=== PATIENT | male | born 1980 | race Caucasian/White ===

== ENCOUNTER 2021-10-07 08:03 | Emergency (ER) | payer BC, SELFPAY ==
[2021-10-07 08:25] VITALS: BP 160/101; PULSE 93; RESP 18; TEMP 36.8; O2SAT 95; BMI 37.5
--- NOTE | 2021-10-07 09:01 | ED_ITS ---
HPI - General Adult General: Chief complaint: General Medical Stated complaint: NOSE BLEED Time Seen by Provider: 10/07/21 09:05 History of Present Illness: HPI narrative: Patient had nosebleed that started today. It has improved significantly. States his nose been dry last couple days had Covid tested 2 days ago when he was negative for Covid. Denies fever chills has had slight body aches and head congestion. Has not tried any nasal clamping, ice or any home remedies to stop the nosebleed. Patient does not normally monitor blood pressure. MD complaint: Nosebleed Onset (ago): minute(s) Associated symptoms: Reports no associated symptoms; Deny chest pain, headache(s), rash or vomiting Review of Systems Narrative: Tested Covid -2 days ago. Const: Denies: fever(s), chills or body aches Eyes: Denies: eye discharge ENMT: Reports: nasal congestion (Dry nose) and epistaxis (No history of nosebleed, just started this morning.); Denies: throat pain or oral sores Card: Reports: other (No hypertension history.); Denies: chest pain or dyspnea on exertion Resp: Reports: non-productive cough; Denies: wheezing or stridor GI: Denies: vomiting or diarrhea : Denies: difficulty urinating Musc: Denies: extremity pain Skin/Breast: Denies: rash Neuro: Denies: headache(s) Psych: Denies: anxiety or depression Jasiel/Lymph: Denies: easy bruising Physical Exam Const: COMMON NORMALS: no acute distress, average body habitus and patient oriented x3 HENMT: COMMON NORMALS: normocephalic and Normal external nose present HEAD & SCALP: normal to inspection and normocephalic FACE & SINUS: normal facial exam NOSE: Normal external nose present and Epistaxis present (No current bleeding. No blood down back throat.) MOUTH: Normal oral and palatal mucosa present THROAT: posterior oropharynx normal Eye: COMMON NORMALS: conjunctivae normal GENERAL EYE: appearance normal, both eyes and all related structures CONJUNCTIVA: Yes conjunctivae normal Neck/C-Spine: COMMON NORMALS: no JVD Chest: COMMONS NORMALS: normal inspection of the chest Resp: COMMON NORMALS: normal respiratory effort Cardio: COMMON NORMALS: no JVD GI: INSPECTION: Yes normal to inspection Extremity: COMMON NORMALS: normal to inspection and full ROM Neuro: COMMON NORMALS: patient oriented x3 Course Vital Signs: Vital signs: Vital Signs Temperature 98.3 F 10/07/21 08:25 Pulse Rate 93 10/07/21 08:25 Respiratory Rate 18 10/07/21 08:25 Blood Pressure 160/101 10/07/21 08:25 Pulse Oximetry 95 10/07/21 08:25 MDM - General Adult MDM Narrative: Medical decision making narrative: Patient in no acute distress. Nosebleed is stopped. I will provide the patient with a nose clamp. Encouraged him to use some [id number] Afrin, [place], check blood pressures on a regular basis and follow-up with his primary care provider. Return here for worsening symptoms or with his PCP. Discharge Plan Discharge Patient Disposition: Home Clinical Impression: Epistaxis Condition: Stable Discharge Orders: Discharge ED (Routine); Ordered 10/07/21 Ordered By: Jim Mendez Discharge Diet: Usual diet Discharge Activity: Increase activity as tolerated Patient Instructions: Nosebleed (ED) Activity Restrictions/Additional Instructions: Use [place] nasal spray to help keep the nose moist. Also use Afrin 3-4 times a day for next couple days to help with vasoconstriction the nasal passages. Do not blow your nose. Can place an ice cube up under the upper lip to help with vasoconstriction. Monitor blood pressure daily follow-up your primary care provider return here for worsening symptoms. Coding Level of Care Code ED Progressive Care Unit Registered Nurse for Alfred Fwjasmine Exam Comprehensive
== END 2021-10-07 09:42 | disposition home or self-care (01) ==
PROVIDERS: Emergency Provider Nurse Practitioner Family
DX: R04.0 Epistaxis (principal)
CPT/HCPCS: 99281